=== PATIENT | female | born 1990 | race Caucasian/White ===

== ENCOUNTER 2019-09-08 14:03 | Emergency (ER) | payer BC, MEDICAID, OTHER ==
[~2019-09-08] VITALS: Ht 162.6 cm; Wt 152.0 kg
--- NOTE | 2019-09-08 15:56 | NUR ---
GAME AGENT: PT WALKED BACK FROM LOBBY TO ROOM AT THIS TIME. STEADY UPON AMBULATION.
--- NOTE | 2019-09-08 16:35 | NUR ---
Pt not in room at this time. Pt left on gurney to ultrasound. Spouse in room waiting for pt.
[2019-09-08] MEDS ORDERED: BUSP10TA PO (17:11)
[2019-09-08] MEDS ORDERED: TRAZ50TA66 PO (17:11)
[2019-09-08] MEDS ORDERED: CLON0.5T20 PO (17:11)
[2019-09-08] MEDS ORDERED: FLUO60TA PO (17:11)
[2019-09-08 17:15] VITALS: BP 141/80
--- NOTE | 2019-09-08 17:16 | NUR ---
PT RESTING ON GURNEY CONNECTED TO NIBP CUFF AND CONTINOUS PULSE OX. PT C/O 13 DAYS OF HEAVY PERIOD WITH ABDOMINAL CRAMPING, DIARRHEA, AND BLOOD CLOTS. NADN. NO NEEDS EXPRESSED. CALL LIGHT WITHIN REACH.
[2019-09-08 17:24] LABS: BASOPHILS # (AUTO) 0.03 x10^3/uL (0-0.1); BASOPHILS % (AUTO) 0 % (0-1); EOSINOPHILS # (AUTO) 0.09 x10^3/uL (0-0.4); EOSINOPHILS % (AUTO) 1 % (1-7); LYMPHOCYTES # (AUTO) 2.14 x10^3/uL (1-3.4); LYMPHOCYTES % (AUTO) 24 % (22-44); MD NO; MEAN CORPUSCULAR HEMOGLOBIN 29.2 pg (27.0-34.8); MEAN CORPUSCULAR HGB CONC 33.1 g/dL (32.4-35.8); MEAN PLATELET VOLUME 8.6 fL (7.4-10.4); MONOCYTES # (AUTO) 0.57 x10^3/uL (0.2-0.8); MONOCYTES % (AUTO) 7 % (2-9); NEUTROPHILS # (AUTO) 5.98 x10^3/uL (1.8-6.8); NEUTROPHILS % (AUTO) 68 % (42-75); PLATELET COUNT 281 x10^3/uL (130-400); RED BLOOD COUNT 4.77 x10^6/uL (3.82-5.3)
[2019-09-08 17:32] LABS: ALBUMIN 3.5 g/dL (3.4-5.0); ANION GAP 6 mmol/L (5-15); CALCIUM 9.3 mg/dL (8.5-10.1); CHLORIDE 107 mmol/L (98-107); CREATININE 1.01 mg/dL (0.55-1.02)
--- NOTE | 2019-09-08 18:18 | NUR ---
Patient given discharge instructions and they have confirmed that they understand the instructions. Patient ambulatory with steady gait. Pt left with d/c paperwork, Rx, and all personal belongings. NADN. No needs expressed.
--- NOTE | 2019-09-08 18:19 | NUR ---
prior note charted on wrong pt.
--- NOTE | 2019-09-08 19:00 | NUR ---
Patient and spouse given discharge instructions and they have confirmed that they understand the instructions. Patient ambulatory with steady gait. Pt left with Rx, D/C papers, and all personal belongings. NADN. No needs expressed.
== END 2019-09-08 19:02 | disposition home or self-care (01) ==
LOC: ED 17:41
DX: N92.1 Excessive and frequent menstruation with irregular cycle (principal); N92.4 Excessive bleeding in the premenopausal period; R10.9 Unspecified abdominal pain; R19.7 Diarrhea, unspecified
CPT/HCPCS: 36415; 76830; 80048; 82040; 84703; 85025; 99284

== ENCOUNTER 2019-10-01 12:25 | Emergency (ER) | payer OTHER ==
[~2019-10-01] VITALS: Ht 162.6 cm; Wt 153.4 kg
[~2019-10-01 12:25] MED LIST: BUSP10TA PO; CLON0.5T20 PO; FLUO60TA PO; TRAZ50TA66 PO
--- NOTE | 2019-10-01 12:39 | NUR ---
pt presents to ED with c/o vag bleeding, heavy x 3 days. pt states she saturates one tampon AND pad every 45 min. pt sent to ED upon OBGYNs recommendation. pt has irregular menstrual cycle, states 3 weeks ago she took a hormonal medication for heavy menstrual cycle which terminated the last menstrual cycle. Addendum: 10/01/19 at 1242 by KENIA pt presents to ED with c/o vag bleeding, heavy x 3 days. pt states she saturates one tampon AND pad every 45 min. pt sent to ED upon OBGYNs recommendation. pt has irregular menstrual cycle, states 3 weeks ago she took a hormonal medication for heavy menstrual cycle which terminated the last menstrual cycle. pt conversing with ALEC Demarco at this time. pt a&o, resps even and unlabored. parth. awaiting orders at this time.
[2019-10-01 13:04] LABS: BASOPHILS # (AUTO) 0.02 x10^3/uL (0-0.1); BASOPHILS % (AUTO) 0 % (0-1); EOSINOPHILS % (AUTO) 1 % (1-7); LYMPHOCYTES # (AUTO) 1.94 x10^3/uL (1-3.4); LYMPHOCYTES % (AUTO) 26 % (22-44); MD NO; MEAN CORPUSCULAR HEMOGLOBIN 29.2 pg (27.0-34.8); MEAN CORPUSCULAR VOLUME 88.5 fL (80-100); MEAN PLATELET VOLUME 8.4 fL (7.4-10.4); MONOCYTES # (AUTO) 0.56 x10^3/uL (0.2-0.8); MONOCYTES % (AUTO) 8 % (2-9); NEUTROPHILS # (AUTO) 4.77 x10^3/uL (1.8-6.8); NEUTROPHILS % (AUTO) 65 % (42-75); PLATELET COUNT 257 x10^3/uL (130-400); RED BLOOD COUNT 4.61 x10^6/uL (3.82-5.3); RED CELL DISTRIBUTION WIDTH 14.7 % (9.6-15.2)
[2019-10-01 13:17] LABS: ALANINE AMINOTRANSFERASE 21 U/L (12-78); ALBUMIN 3.4 g/dL (3.4-5.0); ANION GAP 5 mmol/L (5-15); CALCIUM 7.9 mg/dL (8.5-10.1); CHLORIDE 109 mmol/L (98-107); CREATININE 0.73 mg/dL (0.55-1.02)
[2019-10-01 13:22] LABS: ALKALINE PHOSPHATASE 89 U/L (45-117); BILIRUBIN,TOTAL 0.4 mg/dL (0.2-1.0); TOTAL PROTEIN 7.3 g/dL (6.4-8.2)
--- NOTE | 2019-10-01 13:25 | NUR ---
STRAIGHT CATH URINE OBTAINED, STERILE TECHNIQUE MAINTAINED. URINE WALKED TO LAB.
[2019-10-01 13:43] LABS: MICROSCOPIC AUTO
--- NOTE | 2019-10-01 14:00 | NUR ---
EDMD SAHM AT BEDSIDE TO UDPATE WITH RESULTS AND POC.
[2019-10-01 14:14] VITALS: BP 136/88
--- NOTE | 2019-10-01 14:15 | NUR ---
PT A&O, RESPS EVEN AND UNLABORED, NADN. PT HAS NO COMPLAINT. AWAITING US AND DISPO, BP AND SPO2 MONITORS IN PLACE. CALL LIGHT IN REACH.
--- NOTE | 2019-10-01 14:16 | NUR ---
PT TO US.
--- NOTE | 2019-10-01 14:47 | NUR ---
PT BACK FROM US, PT A&O, RESPS EVEN AND UNLABORED, LIZANDRO. AWAITING US RESULTS AND DISPO.
--- NOTE | 2019-10-01 14:58 | NUR ---
REPORT GIVEN TO BRADY ROMERO WHO IS ASSUMING CARE AT THIS TIME.
--- NOTE | 2019-10-01 15:24 | NUR ---
ERP IN WITH PT AT THIS TIME.
== END 2019-10-01 15:49 | disposition home or self-care (01) ==
LOC: ED 13:22
DX: N92.1 Excessive and frequent menstruation with irregular cycle (principal); N93.8 Other specified abnormal uterine and vaginal bleeding
CPT/HCPCS: 36415; 76830; 80053; 81001; 84703; 85025; 87086; 99284

== ENCOUNTER 2020-03-01 16:28 | Emergency (ER) | payer OTHER ==
[~2020-03-01] VITALS: Ht 162.6 cm; Wt 115.0 kg
--- NOTE | 2020-03-01 16:53 | NUR ---
PT NOTED TO BE SOB AFTER AMBULATING FROM TRIAGE TO ROOM. STATES SHE HAS OXYGEN SATURATION 85 PERCENT AT HOME AND AT DOCTOR'S OFFICE TODAY
[2020-03-01 17:43] LABS: BASOPHILS % (AUTO) 0 % (0-1); EOSINOPHILS % (AUTO) 1 % (1-7); LYMPHOCYTES % (AUTO) 34 % (22-44); MEAN CORPUSCULAR HEMOGLOBIN 28.3 pg (27.0-34.8); MEAN CORPUSCULAR HGB CONC 32.9 g/dL (32.4-35.8); MEAN PLATELET VOLUME 8.6 fL (7.4-10.4); MONOCYTES % (AUTO) 9 % (2-9); NEUTROPHILS % (AUTO) 56 % (42-75); PLATELET COUNT 189 x10^3/uL (130-400); RED BLOOD COUNT 4.87 x10^6/uL (3.82-5.3); RED CELL DISTRIBUTION WIDTH 15.5 % (9.6-15.2)
[2020-03-01 17:44] LABS: MD NO
--- NOTE | 2020-03-01 17:49 | NUR ---
PT NOTED TO BE 87 TO 90 PERCENT ON RA ON CONTINUOUS PULSE OX. PT COMPLETED FORM FOR CHOICE ON HOME OXYGEN COMPANY
[2020-03-01 17:51] LABS: ALBUMIN 3.1 g/dL (3.4-5.0); ANION GAP 5 mmol/L (5-15); CALCIUM 8.4 mg/dL (8.5-10.1); CHLORIDE 108 mmol/L (98-107); CREATININE 0.76 mg/dL (0.55-1.02)
--- NOTE | 2020-03-01 17:54 | NUR ---
THROUGHPUT RN: DR. GARCIA REQUEST HOME O2 DELIVERY/SET UP. PRIMARY RN POLA PROVIDED PT WITH REFERRAL LIST OF DURABLE MEDICAL EQUIPMENT, PT SELECTED [facility] AND SIGNED FORM. [facility] CONTACTED, SPOKE WITH SLIME, PT INFORMATION PROVIDED, PER SLIME "YOU WILL RECEIVE AN RETURN CALL FROM OUR DISCHARGE PLANNING GROUP WHO WILL REQUEST THE ORDER AND ADDITIONAL INFORMATION, THEY WILL PROVIDE YOU WITH A FAX TO SEND ALL INFO TOO."
[2020-03-01 17:55] LABS: TROPONIN I < 0.015 ng/mL (0.000-0.045)
--- NOTE | 2020-03-01 19:01 | NUR ---
REPORT TO MYRNA ABREU
--- NOTE | 2020-03-01 19:01 | NUR ---
AWAITING HOME O2 SETUP. OXYGEN SATURATION 85 PERCENT RA
--- NOTE | 2020-03-01 19:04 | NUR ---
REPORT RECEIVED FROM POLA ABREU
--- NOTE | 2020-03-01 19:18 | NUR ---
PT placed on o2 nc 2lpm, for o2 sats of 88% on RA. MD requested, and is also aware.
--- NOTE | 2020-03-01 19:22 | NUR ---
THROUGHPUT RN: FOLLOW UP CALL PLACED TO [facility] FOR HOME O2 SUPPLIES. FAX NUMBER TO SEND ORDER TO IS . STATE WILL HAVE HOSPITAL DISCHARGE PLANNERS CALL TO VERIFY ORDER, HOME O2 SUPPLIES TO BE DELIVERED TO PATIENT AT ER PRIOR TO DEPARTURE.
--- NOTE | 2020-03-01 19:26 | NUR ---
FOLLOW UP WITH [facility] ABOUT HOME O2 DELIVERY ORDER FAX IS PROCESSING SHE WILL CALL BACK SHORTLY
--- NOTE | 2020-03-01 20:04 | NUR ---
THROUGHPUT RN: ARIES CALLED WITH ADDITIONAL FAX NUMBER SHE DID NOT RECEIVE ORDER. [phone]
--- NOTE | 2020-03-01 20:36 | NUR ---
THROUGHPUT RN: RADHA CALLED AT THIS TIME TO VERIFY THEIR RECEIPT OF FAXED ORDER AND PATIENT INFORMATION. STS WILL HAVE ARIES CALL BACK.
--- NOTE | 2020-03-01 21:12 | NUR ---
PT RESTING IN [facility], PENDING OXYGEN TO BE DROPPED OFF
--- NOTE | 2020-03-01 21:29 | NUR ---
[facility] CALLED TO INFORM HOME O2 IS ON THE WAY AND WILL BE THERE SHORTLY
[2020-03-01 22:15] VITALS: BP 123/78
== END 2020-03-01 22:35 | disposition home or self-care (01) ==
LOC: ED 20:44
DX: J18.9 Pneumonia, unspecified organism (principal); R51.9 Headache, unspecified; R05 Cough; R50.9 Fever, unspecified; M79.10 Myalgia, unspecified site; R19.7 Diarrhea, unspecified; R06.02 Shortness of breath; R09.81 Nasal congestion; Z90.49 Acquired absence of other specified parts of digestive tract
CPT/HCPCS: 36415; 80048; 82040; 84484; 84703; 85025; 93005; 99285